=== PATIENT | female | born 1995 | race Caucasian/White ===

== ENCOUNTER 2017-11-06 15:44 | Outpatient (CLI) | payer OTHER, MEDICAID, SELFPAY | END 2017-11-06 16:40 | PROVIDERS: Family Provider Family Medicine; PCP Family Medicine; Visit Provider Obstetrics & Gynecology | DX: Z34.83 Encounter for supervision of other normal pregnancy, third trimester (principal); Z3A.39 39 weeks gestation of pregnancy | CPT/HCPCS: 59025; G0378 ==

== ENCOUNTER 2017-11-07 | Inpatient (IN) | payer OTHER, MEDICAID, SELFPAY | END 2017-11-09 11:05 | disposition home or self-care (01) | DRG 775 | PROVIDERS: Admitting Provider Family Medicine; Family Provider Family Medicine; PCP Family Medicine; Visit Provider Family Medicine | DX: O71.4 Obstetric high vaginal laceration alone (principal); Z3A.39 39 weeks gestation of pregnancy; Z37.0 Single live birth | CPT/HCPCS: 01967; 36415; 59050; 85014; 85018; 85025; 86850; 86900; 86901; 99058; J2590; J3010 ==

== ENCOUNTER 2018-01-22 14:17 | Emergency (ER) | payer OTHER, MEDICAID, SELFPAY ==
--- NOTE | 2018-01-22 14:19 | ED_ITS ---
HPI - Abdominal Pain <KAREN Griffin - Last Filed: 01/22/18 22:22> General Chief Complaint: Abdominal Pain Stated Complaint: PAIN IN LOWER LEFT SIDE Time Seen by Provider: 01/22/18 14:18 History of Present Illness HPI narrative: 22-year-old healthy female here for complaint of left lower quadrant pain at that started earlier today. She states she has also had some nausea. She feels like she has the urge to defecate her last bowel movement was earlier today and was normal. She denies any urinary symptoms. No fevers no chills. No vomiting. She denies any trauma to the area. She denies any stressors or relievers of the discomfort. She states that she had a similar episode approximately 3 weeks ago that lasted about an hour and then resolved. She denies any blood in her urine. Positive p.o. intake. MD complaint: abdominal pain Related Data Previous Rx's Medication Instructions Recorded hydrocodone-acetaminophen 1 tab PO Q4-6H PRN #10 tab 01/22/18 Allergies Allergy/AdvReac Type Severity Reaction Status Date / Time No Known Drug Allergies Allergy Verified 01/22/18 14:44 Review of Systems <KAREN Griffin - Last Filed: 01/22/18 22:22> Constitutional Denies chills, Denies fever(s), Denies lethargy and Denies weakness Eyes Denies change in vision, Denies eye discharge, Denies irritation and Denies loss of vision ENT Ears, Nose, Mouth, and Throat: Denies change in voice, Denies neck pain and Denies sore throat Cardiovascular Denies chest pain, Denies irregular heart rhythm, Denies lightheadedness, Denies palpitations, Denies dyspnea, Denies dyspnea on exertion and Denies orthopnea Respiratory Denies cough, Denies dyspnea, Denies dyspnea on exertion and Denies wheezing Gastrointestinal Gastrointestinal: Reports abdominal pain and Reports nausea Genitourinary Denies hematuria, Denies flank pain, Denies urinary incontinence and Denies urinary urgency Musculoskeletal Denies neck pain Integumentary/Breasts Denies pruritus, Denies erythema, Denies rash and Denies wounds Neurologic Denies confusion, Denies loss of vision and Denies weakness Psychiatric Denies anxiety, Denies confusion, Denies depression, Denies homicidal ideation and Denies suicidal ideation Endocrine Denies palpitations Hematologic/Lymphatic Denies easy bruising Allergic/Immunologic Denies wheezing Exam <KAREN Griffin - Last Filed: 01/22/18 22:22> Initial Vital Signs Initial Vital Signs: Vital Signs Temperature 98.7 F 01/22/18 14:25 Pulse Rate 100 H 01/22/18 14:25 Respiratory Rate 19 01/22/18 14:25 Blood Pressure 101/63 01/22/18 14:25 Pulse Oximetry 95 01/22/18 14:25 Const General: cooperative and well developed Nutritional Appearance: well nourished Orientation: alert, awake, oriented x3 and not confused [facility] Mouth: oral mucosae normal and moist mucous membranes Eyes Conjunctivae: conjunctivae normal Sclera: sclerae normal Pupils: PERRL EOM: EOM intact bilaterally Resp Effort & Inspection: normal respiratory effort, able to speak in complete sentences, no respiratory distress and no use of accessory muscles Auscultation: clear to auscultation bilaterally, no rales, no rhonchi and no wheezes Cardio Rate: regular rate Rhythm: regular rhythm Heart Sounds: no click, no gallops, no murmurs and no rubs GI Inspection: non-distended Palpation: soft, no hepatosplenomegaly, No guarding, No pulsatile mass and tender (Tenderness on palpation to left lower and left upper quadrant) Auscultation: normal bowel sounds General: No CVA tenderness Skin General: no rashes or lesions noted, No jaundice and No petechiae <Larry Das DO - Last Filed: 01/23/18 07:22> Initial Vital Signs Initial Vital Signs: Vital Signs Temperature 98.7 F 01/22/18 14:25 Pulse Rate 100 H 01/22/18 14:25 Respiratory Rate 19 01/22/18 14:25 Blood Pressure 101/63 01/22/18 14:25 Pulse Oximetry 95 01/22/18 14:25 Course <KAREN Griffin - Last Filed: 01/22/18 22:22> Orders Ordered: Discontinued Medications Hydromorphone HCl (Dilaudid) 0.5 mg IV NOW ONE Stop: 01/22/18 14:41 Last Admin: 01/22/18 15:02 Dose: 0.5 mg Sodium Chloride (Normal Saline 0.9%) 1,000 mls @ 1,000 mls/hr IV BOLUS ONE Stop: 01/22/18 15:39 Last Infusion: 01/22/18 16:52 Dose: 0 mls/hr Admin: 01/22/18 15:03 Dose: 1,000 mls/hr Ondansetron HCl (Zofran) 4 mg IV NOW ONE Stop: 01/22/18 14:41 Last Admin: 01/22/18 15:02 Dose: 4 mg Vital Signs - 8 hr 01/22/18 14:25 01/22/18 14:36 01/22/18 15:30 Temperature 98.7 F 98.7 F Pulse Rate 100 H 100 H 72 Respiratory Rate 19 19 16 Blood Pressure 101/63 101/63 Blood Pressure [Right Arm] 103/76 Pulse Oximetry 95 95 99 01/22/18 16:30 Temperature Pulse Rate 77 Respiratory Rate 16 Blood Pressure Blood Pressure [Right Arm] 103/69 Pulse Oximetry 100 <Larry Das DO - Last Filed: 01/23/18 07:22> Orders Ordered: Discontinued Medications Hydromorphone HCl (Dilaudid) 0.5 mg IV NOW ONE Stop: 01/22/18 14:41 Last Admin: 01/22/18 15:02 Dose: 0.5 mg Sodium Chloride (Normal Saline 0.9%) 1,000 mls @ 1,000 mls/hr IV BOLUS ONE Stop: 01/22/18 15:39 Last Infusion: 01/22/18 16:52 Dose: 0 mls/hr Admin: 01/22/18 15:03 Dose: 1,000 mls/hr Ondansetron HCl (Zofran) 4 mg IV NOW ONE Stop: 01/22/18 14:41 Last Admin: 01/22/18 15:02 Dose: 4 mg Vital Signs - 8 hr 01/22/18 14:25 01/22/18 14:36 01/22/18 15:30 Temperature 98.7 F 98.7 F Pulse Rate 100 H 100 H 72 Respiratory Rate 19 19 16 Blood Pressure 101/63 101/63 Blood Pressure [Right Arm] 103/76 Pulse Oximetry 95 95 99 01/22/18 16:30 Temperature Pulse Rate 77 Respiratory Rate 16 Blood Pressure Blood Pressure [Right Arm] 103/69 Pulse Oximetry 100 MDM - Abdominal Pain <KAREN Griffin - Last Filed: 01/22/18 22:22> Lab Data Result diagrams: 01/22/18 10:50 01/22/18 10:50 Lab Results 01/22/18 01/22/18 01/22/18 Range/Units 10:50 10:50 14:40 WBC 11.2 H (4.5-11.0) X10^3/uL RBC 4.41 (4.0-5.2) X10^6/uL Hgb 11.8 L (12.0-16.0) g/dL Hct 35.9 L (36-46) % MCV 81.5 (80-100) fL MCH 26.8 (26-34) PG MCHC 32.9 (30-36) % RDW 23.5 H (11.6-14.8) % Plt Count 302 (150-400) X10^3/uL Neut % (Auto) 86.8 H (50-75) % Lymph % (Auto) 8.3 L (25-40) % [place] % (Auto) 4.3 (3-14) % Eos % (Auto) 0.2 L (2-4) % Baso % (Auto) 0.4 (0-2) % Neut # (Auto) 9700 H (7860-9040) /uL RBC Morphology Not Reportable Anisocytosis 1+ H Target Cells 1+ H Sodium 142 (137-145) mmol/L Potassium 4.1 (3.4-5.1) mmol/L Chloride 105 (98-107) mmol/L Carbon Dioxide 25 (22-32) mmol/L BUN 12 (7-17) mg/dL Creatinine 0.70 (0.52-1.04) mg/dL Estimated GFR > 60.0 (>60) mL/min BUN/Creatinine Ratio 17.1 (6-22) Glucose 99 (70-100) mg/dL Calcium 9.8 (8.4-10.2) mg/dL Total Bilirubin 0.5 (0.2-1.3) mg/dL AST 22 (14-36) IU/L ALT 27 (9-52) IU/L Alkaline Phosphatase 71 (38-126) U/L Total Protein 7.4 (6.3-8.2) g/dL Albumin 4.6 (3.5-5.0) g/dL Globulin 2.8 (1.7-4.1) g/dL Albumin/Globulin Ratio 1.6 (1.0-2.8) Lipase 54 (23-300) U/L Urine RBC 5-10/hpf H (0-5/HPF) Urine WBC 5-10/hpf H (0-5/HPF) Ur Squamous Epith Cells 0-1 /hpf Urine Bacteria None seen (None) Ur Culture Indicated? Specimen cultured Micro UA Comment Not Reportable Point of care testing: Point of Care Testing Test Results Negative Urine Dip Bedside Urine Glucose Negative Bedside Urine Bilirubin - Negative Bedside Urine Ketone - Negative Urine Specific [place] 1.015 Bedside Urine Occult Blood + Bedside Urine pH 7.0 Bedside Urine Protein +/- 15 Bedside Urine Urobilinogen - Negative Bedside Urine Nitrite - Negative Bedside Urine Leukocytes - Negative Esterase Imaging Data CT scan - abdomen: Radiologist's impression: PROCEDURE: CT ABDOMEN PELVIS W CON INDICATIONS: Left upper and lower quadrant pain TECHNIQUE: After the administration of intravenous contrast, 5 mm thick sections acquired from the diaphragm to the symphysis. 5 mm coronal and sagittal reformats were acquired. For radiation dose reduction, the following was used: automated exposure control, adjustment of mA and/or kV according to patient size. COMPARISON: [facility], [place], RENAL COMPLETE, 07/26/2017, 5:25. FINDINGS: Image quality: Excellent. ABDOMEN: Lung bases: Lung bases are clear. Heart size is normal. Solid organs: Liver is normal in size and enhancement. Gallbladder contains a 1.8 cm noncalcified stone.. Biliary system is non dilated. Pancreas enhances normally. Spleen is normal in size and enhancement. No adrenal nodules. Kidneys demonstrate normal size and enhancement, without hydronephrosis. There is a 13 mm round hypodensity in the mid right kidney laterally, indeterminate with attenuation 42 a similar 5 mm hypodensity is present in the lower pole of the left kidney medially. There is a nonobstructing 3 mm calculus in the left lower pole collecting system. Peritoneum and bowel: Bowel loops demonstrate normal wall thickness and caliber. Normal appendix. No free fluid or air. Nodes and vessels: No retroperitoneal or mesenteric adenopathy by size criteria. Aorta and inferior vena cava are normal in size. Miscellaneous: No ventral hernias. PELVIS: Genitourinary: Bladder wall thickness is normal. IUD in the uterus. Both ovaries show apparent follicular pattern, largest on the left at 1.8 cm. There is a 6 mm calcification in the left hemipelvis that is indeterminate, likely one of several pelvic phleboliths however in view of the left nephrolithiasis, possibility of a stone in the distal left ureter cannot be excluded. Miscellaneous: No inguinal hernias or adenopathy. Bones: No suspicious bony lesions. No vertebral body compression fractures. IMPRESSION: 1. Cholelithiasis without evidence of cholecystitis. 2. Indeterminate 13 mm hypodensity within the mid right kidney, not seen on prior renal ultrasound. Similar 5 mm hypodensity in the lower pole left kidney medially. Nonemergent MRI abdomen with renal protocol is suggested. 3. Nonobstructing 3 mm calculus lower pole left kidney. 4. 6 mm calcification left hemipelvis is indeterminate, possibility of nonobstructive or minimally obstructive stone in the distal left ureter cannot be completely excluded. Correlation with urinalysis is suggested. If indicated, a CT IVP could be considered. Dictated by: Toni Madsen M.D. on 01/22/2018 at 15:58 Approved by: Toni Madsen M.D. on 01/22/2018 at 16:19 MDM Narrative Medical decision making narrative: CBC shows slightly elevated white count 11.2 K. otherwise is unremarkable. Chem panel was obtained was unremarkable. Lipase was normal. Urinalysis indicates positive RBCs and WBCs was negative leuko esterase patient is not having any urinary tract infection symptoms. She felt better after fluids and pain medication in the emergency room. CT of the abdomen shows a 3 mm nonobstructing stone to the left kidney. Possible 6 mm nonobstructing or partial obstructing stone is seen into the distal ureter. Red blood cells in urine suspect for kidney stone however patient is currently spotting due to Mirena. CT toes a 13 mm hypodensity to the right kidney that is indeterminate. CT also shows evidence of cholelithiasis without evidence of cholecystitis Will treat for acute kidney stone at current time. Over-the- counter Tylenol or Motrin as needed for discomfort. Small amount of [place] is prescribed for breakthrough pain. Patient was referred to Urology patient to call the office to schedule follow-up appointment later this week. For any worsening symptoms return emergency room. <Larry Das, - Last Filed: 01/23/18 07:22> Lab Data Lab Results 01/22/18 01/22/18 01/22/18 Range/Units 10:50 10:50 14:40 WBC 11.2 H (4.5-11.0) X10^3/uL RBC 4.41 (4.0-5.2) X10^6/uL Hgb 11.8 L (12.0-16.0) g/dL Hct 35.9 L (36-46) % MCV 81.5 (80-100) fL MCH 26.8 (26-34) PG MCHC 32.9 (30-36) % RDW 23.5 H (11.6-14.8) % Plt Count 302 (150-400) X10^3/uL Neut % (Auto) 86.8 H (50-75) % Lymph % (Auto) 8.3 L (25-40) % [place] % (Auto) 4.3 (3-14) % Eos % (Auto) 0.2 L (2-4) % Baso % (Auto) 0.4 (0-2) % Neut # (Auto) 9700 H (7091-4193) /uL RBC Morphology Not Reportable Anisocytosis 1+ H Target Cells 1+ H Sodium 142 (137-145) mmol/L Potassium 4.1 (3.4-5.1) mmol/L Chloride 105 (98-107) mmol/L Carbon Dioxide 25 (22-32) mmol/L BUN 12 (7-17) mg/dL Creatinine 0.70 (0.52-1.04) mg/dL Estimated GFR > 60.0 (>60) mL/min BUN/Creatinine Ratio 17.1 (6-22) Glucose 99 (70-100) mg/dL Calcium 9.8 (8.4-10.2) mg/dL Total Bilirubin 0.5 (0.2-1.3) mg/dL AST 22 (14-36) IU/L ALT 27 (9-52) IU/L Alkaline Phosphatase 71 (38-126) U/L Total Protein 7.4 (6.3-8.2) g/dL Albumin 4.6 (3.5-5.0) g/dL Globulin 2.8 (1.7-4.1) g/dL Albumin/Globulin Ratio 1.6 (1.0-2.8) Lipase 54 (23-300) U/L Urine RBC 5-10/hpf H (0-5/HPF) Urine WBC 5-10/hpf H (0-5/HPF) Ur Squamous Epith Cells 0-1 /hpf Urine Bacteria None seen (None) Ur Culture Indicated? Specimen cultured Micro UA Comment Not Reportable Point of care testing: Point of Care Testing Test Results Negative Urine Dip Bedside Urine Glucose Negative Bedside Urine Bilirubin - Negative Bedside Urine Ketone - Negative Urine Specific [place] 1.015 Bedside Urine Occult Blood + Bedside Urine pH 7.0 Bedside Urine Protein +/- 15 Bedside Urine Urobilinogen - Negative Bedside Urine Nitrite - Negative Bedside Urine Leukocytes - Negative Esterase Discharge Plan Departure Patient Disposition: Home, Self-Care Clinical Impression: Kidney stone on left side Discharge Date/Time: 01/22/18 17:07 Interventions: ED Discharge Assessment Last Done: 01/22/18 17:06 Instructions: DI for Kidney Stones Activity Restrictions/Additional Instructions: Laboratory results indicate elevated white count in the serum and also a urine. Urinalysis also indicates red blood cells in the urine. Otherwise laboratory results were unremarkable. CT of the abdomen shows that there is a 3 mm nonobstructing stone to the left kidney. And possible 6 mm stone to the distal left ureter. CT also shows that there is evidence of gallstones however they are not causing complications at this time. There is a 13 mm area of hypodensity to the right kidney of unknown origin. Follow up with urology at call the office at number provided to schedule follow-up appointment later this week for further evaluation. Use [id number] Tylenol or Motrin as needed for any discomfort. Small amount of [place] is prescribed for breakthrough pain use as directed. Plenty of fluids and rest. For any worsening symptoms return to the emergency room. Prescriptions: New hydrocodone-acetaminophen 5-325 mg tablet 1 tab PO Q4-6H PRN (Reason: pain) Qty: 10 RF: 0 Referrals: [facility] [Provider Group] Oksana Ledesma MD [Primary Care Provider] - <Larry Das DO - Last Filed: 01/23/18 07:22> Cosign ED Attending Terrell Attestation: I was available for consultation during this patient's emergency department encounter
[2018-01-22 14:25] VITALS: BP 101/63; PULSE 100; RESP 19; TEMP 37.1; O2SAT 95; BMI 22.3
[2018-01-22 14:36] VITALS: BP 101/63; PULSE 100; RESP 19; TEMP 37.1; O2SAT 95; BMI 22.3
--- NOTE | 2018-01-22 14:45 | DI.CT.S_ITS ---
PROCEDURE: CT ABDOMEN PELVIS W CON INDICATIONS: Left upper and lower quadrant pain TECHNIQUE: After the administration of intravenous contrast, 5 mm thick sections acquired from the diaphragm to the symphysis. 5 mm coronal and sagittal reformats were acquired. For radiation dose reduction, the following was used: automated exposure control, adjustment of mA and/or kV according to patient size. COMPARISON: [facility], [place], RENAL COMPLETE, 07/26/2017, 5:25. FINDINGS: Image quality: Excellent. ABDOMEN: Lung bases: Lung bases are clear. Heart size is normal. Solid organs: Liver is normal in size and enhancement. Gallbladder contains a 1.8 cm noncalcified stone.. Biliary system is non dilated. Pancreas enhances normally. Spleen is normal in size and enhancement. No adrenal nodules. Kidneys demonstrate normal size and enhancement, without hydronephrosis. There is a 13 mm round hypodensity in the mid right kidney laterally, indeterminate with attenuation 42 a similar 5 mm hypodensity is present in the lower pole of the left kidney medially. There is a nonobstructing 3 mm calculus in the left lower pole collecting system. Peritoneum and bowel: Bowel loops demonstrate normal wall thickness and caliber. Normal appendix. No free fluid or air. Nodes and vessels: No retroperitoneal or mesenteric adenopathy by size criteria. Aorta and inferior vena cava are normal in size. Miscellaneous: No ventral hernias. PELVIS: Genitourinary: Bladder wall thickness is normal. IUD in the uterus. Both ovaries show apparent follicular pattern, largest on the left at 1.8 cm. There is a 6 mm calcification in the left hemipelvis that is indeterminate, likely one of several pelvic phleboliths however in view of the left nephrolithiasis, possibility of a stone in the distal left ureter cannot be excluded. Miscellaneous: No inguinal hernias or adenopathy. Bones: No suspicious bony lesions. No vertebral body compression fractures. IMPRESSION: 1. Cholelithiasis without evidence of cholecystitis. 2. Indeterminate 13 mm hypodensity within the mid right kidney, not seen on prior renal ultrasound. Similar 5 mm hypodensity in the lower pole left kidney medially. Nonemergent MRI abdomen with renal protocol is suggested. 3. Nonobstructing 3 mm calculus lower pole left kidney. 4. 6 mm calcification left hemipelvis is indeterminate, possibility of nonobstructive or minimally obstructive stone in the distal left ureter cannot be completely excluded. Correlation with urinalysis is suggested. If indicated, a CT IVP could be considered. Dictated by: Toni Madsen M.D. on 01/22/2018 at 15:58 Approved by: Toni Madsen M.D. on 01/22/2018 at 16:19
[2018-01-22 14:47] LABS: Bacteria Urine None Seen
[2018-01-22 14:57] LABS: RBC Urine 5-10/HPF (0-5/HPF); Squamous Epithelial Cell Urine 0-1 /HPF; WBC Urine 5-10/HPF (0-5/HPF)
[2018-01-22 14:58] LABS: Culture Indicated Urine Specimen Cultured
[2018-01-22] MEDS: ONDANSETRON 4 MG/2 ML INJ IV (15:02)
[2018-01-22] MEDS: HYDROMORPHONE 1 MG INJ 0.5 MG IV (15:02)
[2018-01-22] MEDS: SODIUM CHLORIDE 0.9% 1,000 ML 1000 ML IV (15:03)
[2018-01-22 15:16] LABS: Add Manual Diff / Slide Review NO; Basophils Percent Auto 0.4 % (0-2); Eosinophils Percent Auto 0.2 % (2-4); Hematocrit 35.9 % (36-46); Hemoglobin 11.8 g/dL (12.0-16.0); Lymphocytes Percent Auto 8.3 % (25-40); Mean Corpuscular HGB Conc 32.9 % (30-36); Mean Corpuscular Hemoglobin 26.8 PG (26-34); Mean Corpuscular Volume 81.5 fL (80-100); Monocytes Percent Auto 4.3 % (3-14); Neutrophils Absolute Auto 9700 /uL (3000-5900); Neutrophils Percent Auto 86.8 % (50-75); Platelet Count 302 X10^3/uL (150-400); Red Blood Cell Count 4.41 X10^6/uL (4.0-5.2); Red Cell Distribution Width 23.5 % (11.6-14.8); White Blood Cell Count 11.2 X10^3/uL (4.5-11.0)
[2018-01-22 15:25] LABS: Alanine Aminotransferase 27 IU/L (9-52); Albumin 4.6 g/dL (3.5-5.0); Albumin Globulin Ratio 1.6 (1.0-2.8); Alkaline Phosphatase 71 U/L (38-126); Aspartate Aminotransferase 22 IU/L (14-36); BUN Creatinine Ratio 17.1 (6-22); Bilirubin Total 0.5 mg/dL (0.2-1.3); Blood Urea Nitrogen 12 mg/dL (7-17); Calcium 9.8 mg/dL (8.4-10.2); Carbon Dioxide 25 mmol/L (22-32); Chloride 105 mmol/L (98-107); Estimated Glomerular Filt Rate > 60.0 mL/min (>60); Globulin 2.8 g/dL (1.7-4.1); Glucose 99 mg/dL (70-100); HEMOLYSIS < 15 (0-50); Lipase 54 U/L (23-300); Potassium 4.1 mmol/L (3.4-5.1); Sodium 142 mmol/L (137-145); Total Protein 7.4 g/dL (6.3-8.2)
[2018-01-22 15:30] VITALS: BP 103/76; PULSE 72; RESP 16; O2SAT 99
[2018-01-22 15:37] LABS: Anisocytosis 1+; Target Cells 1+
[2018-01-22 16:30] VITALS: BP 103/69; PULSE 77; RESP 16; O2SAT 100
== END 2018-01-22 17:07 | disposition home or self-care (01) ==
PROVIDERS: Emergency Provider Nurse Practitioner Family; Family Provider Family Medicine; PCP Family Medicine
DX: N20.0 Calculus of kidney (principal)
CPT/HCPCS: 36415; 74177; 80053; 81003; 81015; 81025; 83690; 85025; 87077; 87086; 87147; 96361; 96374; 96375; 99283; 99285; J1170; J2405; Q9967